=== PATIENT | male | born 1945 | race African-American/Black ===

== ENCOUNTER 2016-08-18 09:28 | Inpatient (IN) | payer MEDICARE, OTHER ==
--- NOTE | ~2016-08-18 | DS ---
Discharge Summary [facility] [address] [place]. [address] NAME: SHAY BAPTISTE : 43 STATUS : DIS IN PAT#: [id number] AGE: 71 ADM/REG DATE : 08/18/16 MR#: [id number] REPORT SERV DATE: 09/07/16 DICTATED BY: JUDIE GIBBONS DATE: 09/07/16 REPORT STATUS : Draft TRANSCRIBED BY: MODL DATE: 09/07/16 Data Collection from hospitalization DISCHARGE DIAGNOSIS(ES): 1. Chronic respiratory failure - status post trach/pneumonia. 2. Shock/hypotension. 3. Sepsis - multifactorial/wounds. 4. Atrial fibrillation with rapid ventricular response - sinus rhythm. 5. Encephalopathy/altered mental status. 6. History of seizures. 7. Dysphagia with percutaneous endoscopic gastrostomy tube/tube feedings. 8. Diabetes mellitus. 9. Chronic kidney disease. 10.Anemia. 11.History of closed head injury. 12.History of systolic congestive heart failure. 13.Chronic obstructive pulmonary disease. 14.Chronic debilitation. 15.History of adrenal adenoma. 16.History of urolithiasis. 17.Degenerative disk disease. 18.Depression. 19.Former smoker. CONSULTATIONS: Chencho Dunn MD; Pierce Hernandez M.D.; Bennett Raymundo M.D. PROCEDURES PERFORMED: CT scan of the brain without contrast, 08/18/2016. MEDICATIONS: CONDITION AT DISCHARGE: DISPOSITION: [facility]. HOSPITAL COURSE: This is a 71-year-old man who is well known to our service. He was transferred from [facility] to [facility] Emergency Room with the chief complaint of abnormal labs and an altered mental status. The patient was recently discharged from the hospital on the 04 of August. He was sent back to the facility where he was found not to be himself. He was sent to the emergency room and workup there revealed multiple electrolyte abnormalities as well as questionable urinary infection. He was admitted to the hospital at this time for further evaluation and treatment. Upon admission, white blood cell count was 18. Troponin was negative. IV fluids were started for gentle hydration. He was felt to be at risk for sepsis. The patient is chronically hypotensive. We would evaluate his thyroid medication and adjust accordingly due to his elevated TSH. Ventilator support continued. DVT precautions were in place. We elevated the head of his bed. A PICC line was inserted. The following day, he was evaluated by Physical Therapy. IV fluids were adjusted. His sodium level had decreased to Discharge Summary [facility] [address] [place]. [address] NAME: SHAY BAPTISTE : 43 STATUS : DIS IN PAT#: [id number] AGE: 71 ADM/REG DATE : 08/18/16 MR#: [id number] REPORT SERV DATE: 09/07/16 DICTATED BY: JUDIE GIBBONS DATE: 09/07/16 REPORT STATUS : Draft TRANSCRIBED BY: MODL DATE: 09/07/16 159. Repeat urinalysis is positive. CT scan of the brain without contrast showed no acute intracranial abnormality. He was seen in consultation by Dr. Pierce Batista. White count was 15.3. There was concern that his renal disease was much worse than stage II chronic kidney disease. He was clearly not felt to be a dialysis candidate. The patient's sister was not present who was the decision maker. We continued to adjust his IV fluids. Echocardiogram was performed. The patient was also seen by Dr. Bennett Raymundo. He was well known to Dr. Raymundo from previous admissions. The patient was found to have ESBL E. coli in the urine. 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 Vancomycin had been added to his regimen. Blood cultures were negative to date. The source of his sepsis picture was not entirely clear. He had been receiving Zosyn and now had the addition of vancomycin. On the , his sodium level decreased to 143. IV fluids were adjusted. He remained at full code at this time. His prognosis remained poor. His white count was 16.9. T-max was 101.3. Chest x-ray was unchanged. A sputum culture was pending. Tobramycin was going to be added. Vancomycin and Zosyn were continued. On 08/23/2016, sodium level was now 140. White blood cell count had decreased to 14.7. Influenza scan was negative. The following day, he was not remained sedated. The patient's sister was told in detail about the patient's poor prognosis and declining condition. She was going to consider comfort measures and make a decision. White count was 12.5. Contact isolation was in place. Hospice care had been recommended. Vancomycin was stopped. On the , the patient was seen by Dr. Chencho Dunn regarding chronic respiratory failure with hypoxia and hypercapnia. The patient has underlying chronic infections with multidrug resistant organisms. The patient has chronic hypercapnic and hypoxic respiratory failure. He was noted to be acidotic at this moment in time and ventilator strategy had been changed. We were going to attempt to obtain a repeat arterial blood gas to ensure adequate CO2 removal. Echocardiogram showed ejection fraction 55-60%. He had bilateral rhonchi and coarse breath sounds. Plans were being made for probable terminal wean. On the , he was only minimally responsive. He did not appear to be in distress. His condition continued to decline. In the religious education teacher hours of 08/29/2016, he was found without blood pressure, pulse, or respirations. He was pronounced at 0736 hours and released to the above mentioned home. Information collected by: Michelle Bowman I submit the above information as my discharge summary. TG/MODL Judie Gibbons M.D. / [id number] CC: Rusty Chapman M.D. Robert Warren Goldmann, M.D.
--- NOTE | ~2016-08-18 | CN ---
Consultation Report [facility] [address] [place]. [address] NAME: SHAY BAPTISTE : 43 STATUS : ADM IN [facility]#: [id number] AGE: 71 ADM/REG DATE : 08/18/16 MR#: [id number] REPORT SERV DATE: 08/25/16 DICTATED BY: CHENCHO DUNN DATE: 08/25/16 REPORT STATUS : Draft TRANSCRIBED BY: MODL DATE: 08/25/16 CRITICAL CARE CONSULT NOTE DATE OF CONSULTATION: REQUESTING PHYSICIAN: Ridge Barnett M.D. REASON FOR CONSULTATION: Chronic respiratory failure with hypoxia and hypercapnia. CHIEF COMPLAINT: Unable to obtain due to the patient's current medical status. HISTORY OF PRESENT ILLNESS: Mr. Baptiste is a 71-year-old gentleman with a past medical history of chronic respiratory failure who is well-known to the [facility] Service, Dr. Barnett and Dr. Brown. He was admitted one week ago with altered mental status and had a diagnosis at that time of dehydration. History was obtained from the nursing staff as there was no current family at the bedside at 2 o'clock in the morning when the patient was seen. The patient is now found to have underlying chronic infections with multi-drug resistant organisms. PAST MEDICAL HISTORY: History of a closed head injury in 2003, history of seizures, chronic respiratory failure on mechanical ventilation, dysphagia with a PEG, COPD, chronic kidney disease, sacral decubitus ulcer, chronic Walker, diabetes, depression, iron deficiency anemia. CURRENT MEDICATIONS: Medication list reviewed, the patient's current antimicrobial medications include tobramycin, Zosyn. Pulmonary medications include Dulera, DuoNeb, and albuterol. ALLERGIES: NO KNOWN DRUG ALLERGIES. FAMILY HISTORY: Coronary artery disease per record. SOCIAL HISTORY: The patient currently is at [facility], his immediate family is a sister. REVIEW OF SYSTEMS: Unable to obtain as the patient is noncommunicative. PHYSICAL EXAMINATION: VITAL SIGNS: The patient's currently temperature maximum of 99.3, heart rate between 100 and 120, respiratory rate between 17 and 33 on mechanical ventilation. Blood pressure between 61 systolic and 124 with a MAP greater than 65 for at least the last six hours. GENERAL: The patient is looking around in the room, he does not respond to verbal stimuli but does respond to touch as he grimaces. Consultation Report [facility] [address] [place]. [address] NAME: SHAY BAPTISTE : 43 STATUS : ADM IN PAT#: [id number] AGE: 71 ADM/REG DATE : 08/18/16 MR#: [id number] REPORT SERV DATE: 08/25/16 DICTATED BY: CHENCHO DUNN DATE: 08/25/16 REPORT STATUS : Draft TRANSCRIBED BY: MODL DATE: 08/25/16 HEENT: No JVD is noted. PULMONARY: Lungs are clear to auscultation in the anterior stephenson. CARDIAC: Tachycardic, slight systolic murmur. ABDOMEN: Abdomen is soft, the patient does grimace to touch. No guarding. Positive bowel sounds. EXTREMITIES: No lower extremity edema, extremity is lukewarm, peripheral pulses noted in all extremity, the patient is moving all extremities. LABORATORY DATA: Hemoglobin 9.1 up from 6.6, kidney function is not adequate. Arterial blood gas showed a pH of 7.26, pCO2 of 84, this was done 24 hours ago. At that time, the patient had a tidal volume of 500 and a rate of 16. Current tidal volume is 550 with a rate of 18. ASSESSMENT AND PLAN: Mr. Baptiste is a 71-year-old gentleman with a past medical history noted above, who currently has Acinetobacter which is a carbapenemase and Infectious Disease is currently on board, chest x-ray yesterday showed no new infiltrate. Recommendations included below: 1. Chronic hypercapnic and hypoxic respiratory failure: The patient was noted to be acidotic, at this moment in time ventilator strategy has been changed, we will attempt to obtain a repeat arterial blood gas to ensure adequate CO2 removal. 2. Goals of care: Upon review of the record, Palliative Care has been consulted for further discussion in this patient and his overall goals of care in light of his new drug-resistant organism. Thank you very much for this consultation and allowing us to participate in your patient's care, please call us with any further questions or concerns. HFQ/CARYL Chencho Dunn MD / [id number] CC: Ridge Barnett M.D.
--- NOTE | ~2016-08-18 | HP ---
History And Physical [facility] [id number] [place]. [address] NAME: SHAY BAPTISTE : 43 STATUS : ADM IN [facility]#: [id number] AGE: 71 ADM/REG DATE : 08/18/16 MR#: [id number] REPORT SERV DATE: 08/18/16 DICTATED BY: RIDGE GIBBONS DATE: 08/18/16 REPORT STATUS : Draft TRANSCRIBED BY: MODL DATE: 08/18/16 DATE OF ADMISSION: 08/18/2016 CHIEF COMPLAINT: Abnormal labs and altered mental status. HISTORY OF PRESENT ILLNESS: A 71-year-old black male well known to our service. Transferred from [facility] to [facility] emergency room with the above complaint. Due to the patient's decreased mental status, full history and physical exam difficult to obtain. Chart and staff were reviewed. The patient was recently discharged from the hospital on the 04 of August. Please see admission and discharge notes. He was sent back to the facility where he was noted to not be himself. He was sent to the emergency room where workup there revealed multiple electrolyte abnormalities as well as questionable urinary tract infection, and therefore, he was admitted for correction of his electrolytes, IV fluids, and workup of questionable infection. The patient is chronically debilitated with decreased mental status, therefore rest of the history will be obtained by the chart. ALLERGIES: NO KNOWN DRUG ALLERGIES. MEDICATIONS: Please see MAR. PAST MEDICAL HISTORY: Recent hospitalization with diarrhea and hypotension-please see old notes, history of seizures, closed head injury in 2003, systolic congestive heart failure, COPD, history of pneumonia, history of chronic respiratory failure on ventilator, dysphagia with PEG, osteoarthritis, chronic kidney disease stage II at baseline, chronic debilitation, prostate problems, history of adrenal adenoma, chronic Walker, urolithiasis, chronic pressure ulcers, IDDM type 2, iron deficiency anemia, degenerative disc disease, and depression. PAST SURGICAL HISTORY: Tracheostomy, pneumothorax with chest tube, PEG tube placement, heart catheterization, history of urethral stents and cystourethroscopy. SOCIAL HISTORY: The patient lives at [facility], has a sister who helps with his care, Caodaism restorationism, former smoker, single. FAMILY HISTORY: Coronary artery disease. REVIEW OF SYSTEMS: Unable to obtain due to the patient's decreased mental status. PHYSICAL EXAMINATION: VITAL SIGNS: Blood pressure is running at baseline 90s to 100/60, pulse 100, respirations 16 with chronic vent, and temperature 98.8. History And Physical [address] [address] NAME: SHAY BAPTISTE : 43 STATUS : ADM IN PAT#: [id number] AGE: 71 ADM/REG DATE : 08/18/16 MR#: [id number] REPORT SERV DATE: 08/18/16 DICTATED BY: RIDGE GIBBONS DATE: 08/18/16 REPORT STATUS : Draft TRANSCRIBED BY: CARYL DATE: 08/18/16 GENERAL: A black male well known to me with his chronic debilitative state. HEENT: Head, no acute injuries. Eyes, muddy sclerae but otherwise anicteric. ENT, edentulous. Otherwise dry mucosa. NECK: Cachectic with trach. LUNGS: Bilateral upper respiratory congestion. HEART: Please see heart monitor but tachycardic at this time. ABDOMEN: PEG tube placement, soft, positive bowel sounds. : Chronic Walker is present. EXTREMITIES: Wasting is present. LYMPH: No edema. SKIN: Chronic pressure ulcers-please see wound care-his right hip and sacral pressure ulcer at stage IV. NEUROLOGIC: No cooperation with exam. LABORATORY DATA: 1. CBC shows WBC 18, H and H 8.1 and 28.2, and PLT is 316. INR 1.3. Chemistry shows Na 165, K 4.5, CO 121, CO2 of 41, BUN 143, creatinine 1.14, GFR 74. Glucose 112. Lactate is 1.1 (N). Magnesium is 3.3 (H). Beta natriuretic peptide is 397 (H). Troponin is negative at this time. TSH is 6.4 (H). Depakote level 2.3 (L). 2. Blood gas shows pH 7.43, pCO2 of 69, PO2 of 59, bicarb 44, and O2 saturation 89% on CMV ventilator. Urinalysis from chronic Walker unfortunately is cloudy with everything being positive. Question to validity of this urine. 3. Imaging-CT of the brain shows no changes, otherwise nothing acute. Chest x-ray shows remote changes with bilateral basilar atelectasis. 4. Consultation-we will consult Critical Care for vent management. IMPRESSION: 1. Hyponatremia. 2. Uremia. 3. Leukocytosis-questionable cause. 4. Bacteriuria with chronic Walker. 5. Hypermagnesemia. 6. Anemia of chronic disease. 7. Hypotension-chronic. 8. Elevated TSH. 9. Chronic respiratory failure with vent dependent trach. 10.Chronic systolic congestive heart failure. 11.IDDM type 2. 12.History of seizure disorders. 13.Sacral pressure ulcer stage 4. 14.Dysphagia with PEG. 15.History of closed head injury with chronic debilitation. 16.History of chronic kidney disease, stage II. PLAN: 1. We will start IV fluids and hydrate gently. The patient is at risk for SOFTWARE DEVELOPER complications. 2. We will watch renal function as it is probably secondary to his low volumes. We will consult renal as necessary. The patient is at risk for acute kidney injury. History And Physical [address] [place]. [address] NAME: SHAY BAPTISTE : 43 STATUS : ADM IN [facility]#: [id number] AGE: 71 ADM/REG DATE : 08/18/16 MR#: [id number] REPORT SERV DATE: 08/18/16 DICTATED BY: RIDGE GIBBONS DATE: 08/18/16 REPORT STATUS : Draft TRANSCRIBED BY: CARYL DATE: 08/18/16 3. Follow leukocytosis as he is at risk for sepsis. 4. Question urine at this time. May change Walker and repeat urine to make sure good sample is achieved for being obligated to antibiotics. 5. We will follow magnesium with fluids as I suspect it will come back down to baseline normal. 6. Follow anemia as the patient is at risk for acute coronary syndrome. 7. He is chronically hypotensive but we will watch pressures as he is at risk for sepsis and multisystem organ failure. 8. We will evaluate thyroid medicines and adjust accordingly due to his elevated TSH. 9. Support ventilator in unit and consult Critical Care for their assistance. The patient is at risk for ARDS. 10.Control blood sugars as he is at risk for DKA. 11.Continue seizure medications as he is at risk for status epilepticus. 12.Consult Wound Care for evaluation of his wounds as he is at risk for osteomyelitis. 13.Elevate head of bed as he is at risk for aspiration. 14.Consult PT for eval and treatment. 15.DVT precautions. RH/MODL Ridge Gibbons M.D. / [id number] CC: Ridge Gibbons M.D.
[~2016-08-18 09:28] MED LIST: ACIDOPHILU2 PEG; AMB5 PEG; ATV.5 PEG; BEN25 PEG; BISR PR; CENTRUM PEG; CHLORASEPTIC1.4 % MT; CILOXAN OPH; COLACEUDL PEG; COUMADIN7.5 MG PEG; DEP250 PEG; DEPAKUDL PEG; DULERA 200 MCG/13 GM INH; DUONEB INH; EFFEX75 PEG; ELIQUIS 2.5 MG2.5 MG PO; FEOSOLEL PEG; FLOMAX4 PEG; GERI-MOX PEG; GGEXPSF PEG; GLUCAGEN SC; GLUCAGON IV/IM/SC; GUAIFENESI4 PEG; HEPA50006 SC; HUMALOG SC; IMOD PEG; LEVAQUIN750 MG PEG; LEVOTHYROXIN25 MCG PEG; LEXAPRO5 MG PEG; LOP25 PO; MEDROL4 IV; MIRALAXPKT PEG; MOMUD PEG; MULTIPLE VIT PEG; NORCO1 TA1 PO; OMNICEF300 PEG; P10 PEG; P20 PEG; PEPCID40 MG PEG; PERIDEX MT; PERIOGARD0.12 % PO; PREV30 PEG; PRIN2.5 PEG; PRIN5 PEG; PROBIOTIC PEG; PROTONI1 PEG; PROTONI1 PO; PROVENTSOL INH; QUESTRAN4 GM PEG; T PEG; THERA MULTI1 ML PO; VANCO500 IV; X5 PO; XODOL1 TA2 PEG; ZITHROMAX500 MG PEG; ZOFRAN4 PEG; ZOSYN375 IV
[2016-08-18 09:29] LABS: ALLENS TEST Pos; BE (BASE EXCESS) 17.5 MEQ/L (0 +/- 2.5); CARBOXYHEMOGLOBIN 1.3 % (0-3); HCO3 (ACTUAL BICARBONATE) 44.2 MEQ/L (23-27); HEMOBLOGIN CONTENT 8.7 G/DL (14-18); INSTRUMENT SERIAL # 8087; METHEMOGLOBIN 0.4 % (0-3); MODE CMV; O2 CONTENT 10.8 VOL% (18-24); PCO2 (CO2 TENSION) 69 MMHG (35-45); PO2 (O2 TENSION) 59 MMHG (79-93); SAMPLE Arterial; TIDAL VOLUME 500 ML; pH 7.43 (7.37-7.43)
[2016-08-18 09:41] LABS: BASOPHILS 0.2 %; BASOPHILS ABSOLUTE 0.03 10/3/uL (0.0-0.16); EOSINOPHILS 5.3 %; EOSINOPHILS ABSOLUTE 1.01 10/3/uL (0.0-0.53); HEMATOCRIT 28.2 % (40.0-51.0); HEMOGLOBIN 8.1 g/dL (13.6-17.8); IMMATURE GRANULOCYTES 0.6 %; IMMATURE GRANULOCYTES ABSOLUTE 0.12 10/3/uL (0.0-0.11); LYMPHOCYTES 10.7 %; LYMPHOCYTES ABSOLUTE 2.03 10/3/uL (0.67-4.30); MEAN CORPUS HGB CONC 28.7 g/dL (32.0-36.0); MEAN PLATELET VOLUME 10.6 fL (9.2-13.0); MONOCYTES 6.2 %; MONOCYTES ABSOLUTE 1.17 10/3/uL (0.21-1.20); NEUTROPHILS ABSOLUTE 14.55 10/3/uL (2.02-8.40); NUCLEATED RED BLOOD CELLS 0.2 /100WBC (0-0); PLATELET COUNT 316 10/3/uL (150-400); RBC DISTRIBUTION WIDTH 21.7 % (12.0-16.0); RED CELL COUNT 3.12 10/6/uL (4.7-6.1)
[2016-08-18 09:43] LABS: ER CBC TAT 0 Hrs 13 Mins; MEAN CORPUSCULAR VOLUME 90.4 fL (80-100); WHITE BLOOD CELLS 18.9 10/3/uL (4.5-10.5)
[2016-08-18 09:44] LABS: MANUAL DIFF NO %
[2016-08-18 09:48] LABS: INTERNATIONAL NORMAL RATI 1.3 UNITS (-); PARTIAL THROMBO TIME 25.2 SEC (22.5-37.2); PROTIME (NOT ORD) 16.1 SEC (12.0-14.5)
[2016-08-18 09:56] LABS: CHEST PAIN PROFILE TAT 0 Hrs 26 Mins; POTASSIUM, SERUM 4.5 MMOL/L (3.5-5.3); TROPONIN I 0.04 NG/ML (<0.05)
[2016-08-18 09:57] LABS: LACTATE 1.1 MMOL/L (0.3-2.4)
[2016-08-18 09:59] LABS: BUN (BLOOD UREA NITROGEN) 143 MG/DL (6-23); CALCIUM, SERUM 11.7 MG/DL (8.5-10.4); CHLORIDE, SERUM 121 MMOL/L (96-112); CO2 (CARBON DIOXIDE) 41 MMOL/L (24-34); CREATININE 1.14 MG/DL (0.70-1.30); GFR AFRICAN AMERICAN 74 ML/MIN (>=60); GFR NON AFRICAN AMERICAN 64 ML/MIN (>=60); GLUCOSE, SERUM 112 MG/DL (60-99); SODIUM, SERUM 165 MMOL/L (135-148)
[2016-08-18 10:02] LABS: ULTRASENSITIVE TSH 6.42 MCIU/ML (0.358-3.740)
[2016-08-18 10:03] LABS: DEPAKENE (VALPROIC ACID) 23.7 MCG/ML (50.0-100.0)
[2016-08-18 10:06] LABS: ASCORBIC ACID (UR NOT ORDER) 40 (NEG); BILIRUBIN, URINE NEGATIVE (NEG); ER URINALYSIS TAT 0 Hrs 20 Mins; KETONE, URINE NEGATIVE (NEG); LEUKOCYTE ESTERASE(NOT OR LARGE (NEG); WBC (NOT ORDERED) (RFLEX) 74 (0-5)
[2016-08-18 10:12] LABS: NITRITE (URINE) POS (NEG)
[2016-08-18 10:32] LABS: ANISOCYTOSIS 1+ (5-10/OIF) (0-5/OIF); HYPOCHROMIA 1+ (3-10/OIF) (0-2/OIF); MICROCYTES 1+ (5-10/OIF) (0-5/OIF)
[2016-08-18] MEDS ORDERED: ADVAIR230P INH (10:42)
[2016-08-18 15:57] LABS: ASCORBIC ACID (UR NOT ORDER) 40 (NEG); BILIRUBIN, URINE NEGATIVE (NEG); KETONE, URINE NEGATIVE (NEG); LEUKOCYTE ESTERASE(NOT OR LARGE (NEG); WBC (NOT ORDERED) (RFLEX) > 182 (0-5)
[2016-08-18 18:12] LABS: BASOPHILS 0.3 %; BASOPHILS ABSOLUTE 0.05 10/3/uL (0.0-0.16); CHLORIDE, SERUM 121 MMOL/L (96-112); CO2 (CARBON DIOXIDE) 38 MMOL/L (24-34); CREATININE 1.03 MG/DL (0.70-1.30); EOSINOPHILS 3.8 %; EOSINOPHILS ABSOLUTE 0.57 10/3/uL (0.0-0.53); GFR AFRICAN AMERICAN 84 ML/MIN (>=60); GFR NON AFRICAN AMERICAN 72 ML/MIN (>=60); GLUCOSE, SERUM 92 MG/DL (60-99); HEMATOCRIT 26.5 % (40.0-51.0); HEMOGLOBIN 7.6 g/dL (13.6-17.8); IMMATURE GRANULOCYTES 0.4 %; IMMATURE GRANULOCYTES ABSOLUTE 0.06 10/3/uL (0.0-0.11); LYMPHOCYTES ABSOLUTE 1.35 10/3/uL (0.67-4.30); MEAN CORPUS HGB CONC 28.7 g/dL (32.0-36.0); MEAN CORPUSCULAR HEMOGLOB 26.1 pg (26.0-34.0); MEAN CORPUSCULAR VOLUME 91.1 fL (80-100); MEAN PLATELET VOLUME 9.9 fL (9.2-13.0); MONOCYTES 5.5 %; MONOCYTES ABSOLUTE 0.83 10/3/uL (0.21-1.20); NEUTROPHILS ABSOLUTE 12.14 10/3/uL (2.02-8.40); NUCLEATED RED BLOOD CELLS 0.5 /100WBC (0-0); PLATELET COUNT 329 10/3/uL (150-400); RED CELL COUNT 2.91 10/6/uL (4.7-6.1)
[2016-08-18 18:13] LABS: BUN (BLOOD UREA NITROGEN) 124 MG/DL (6-23); CALCIUM, SERUM 10.4 MG/DL (8.5-10.4); MANUAL DIFF NO %; SODIUM, SERUM 161 MMOL/L (135-148)
[2016-08-18 18:14] LABS: POTASSIUM, SERUM 4.4 MMOL/L (3.5-5.3)
[2016-08-18 18:43] LABS: SCHISTOCYTES OCC (0-2/OIF); TARGET CELLS OCC (1-2/OIF) (0-1/OIF)
[2016-08-19 04:57] LABS: BASOPHILS 0.3 %; BASOPHILS ABSOLUTE 0.04 10/3/uL (0.0-0.16); EOSINOPHILS 5.6 %; EOSINOPHILS ABSOLUTE 0.85 10/3/uL (0.0-0.53); IMMATURE GRANULOCYTES 0.3 %; IMMATURE GRANULOCYTES ABSOLUTE 0.05 10/3/uL (0.0-0.11); LYMPHOCYTES 9.1 %; LYMPHOCYTES ABSOLUTE 1.39 10/3/uL (0.67-4.30); MEAN CORPUS HGB CONC 28.6 g/dL (32.0-36.0); MEAN CORPUSCULAR HEMOGLOB 25.3 pg (26.0-34.0); MEAN CORPUSCULAR VOLUME 88.5 fL (80-100); MONOCYTES 5.3 %; MONOCYTES ABSOLUTE 0.81 10/3/uL (0.21-1.20); NEUTROPHILS 79.4 %; NEUTROPHILS ABSOLUTE 12.12 10/3/uL (2.02-8.40); NUCLEATED RED BLOOD CELLS 0.6 /100WBC (0-0); PLATELET COUNT 341 10/3/uL (150-400); RBC DISTRIBUTION WIDTH 21.9 % (12.0-16.0); RED CELL COUNT 2.61 10/6/uL (4.7-6.1); WHITE BLOOD CELLS 15.3 10/3/uL (4.5-10.5)
[2016-08-19 05:01] LABS: HEMOGLOBIN 6.6 g/dL (13.6-17.8)
[2016-08-19 05:02] LABS: HEMATOCRIT 23.1 % (40.0-51.0); MANUAL DIFF NO %
[2016-08-19 05:09] LABS: CALCIUM, SERUM 10.6 MG/DL (8.5-10.4); CHLORIDE, SERUM 119 MMOL/L (96-112); CO2 (CARBON DIOXIDE) 36 MMOL/L (24-34); CREATININE 0.96 MG/DL (0.70-1.30); GFR AFRICAN AMERICAN 91 ML/MIN (>=60); GFR NON AFRICAN AMERICAN 79 ML/MIN (>=60)
[2016-08-19 05:12] LABS: BUN (BLOOD UREA NITROGEN) 118 MG/DL (6-23); GLUCOSE, SERUM 62 MG/DL (60-99); PHOSPHORUS, SERUM 3.4 MG/DL (2.5-4.5); POTASSIUM, SERUM 4.4 MMOL/L (3.5-5.3); SODIUM, SERUM 159 MMOL/L (135-148); TROPONIN I 0.07 NG/ML (<0.05)
[2016-08-19 12:02] LABS: A/G RATIO 0.2 (0.7-1.9); ALBUMIN 1.5 G/DL (3.5-5.0); ALKALINE PHOSPHATASE 79 U/L (45-117); GLOBULIN 7.5 G/DL (2.5-4.1); SGPT(ALT) 13 U/L (5-65); TOTAL BILIRUBIN 0.3 MG/DL (0-1.2)
[2016-08-19 12:03] LABS: SGOT(AST) 48 U/L (5-40)
[2016-08-19 13:49] LABS: HEMATOCRIT 28.1 % (40.0-51.0); HEMOGLOBIN 8.3 g/dL (13.6-17.8)
[2016-08-20 04:38] LABS: CALCIUM, SERUM 9.9 MG/DL (8.5-10.4); CHLORIDE, SERUM 118 MMOL/L (96-112); CO2 (CARBON DIOXIDE) 36 MMOL/L (24-34); CREATININE 0.89 MG/DL (0.70-1.30); GFR AFRICAN AMERICAN 99 ML/MIN (>=60); GFR NON AFRICAN AMERICAN 85 ML/MIN (>=60); POTASSIUM, SERUM 4.3 MMOL/L (3.5-5.3)
[2016-08-20 04:40] LABS: BUN (BLOOD UREA NITROGEN) 92 MG/DL (6-23); GLUCOSE, SERUM 137 MG/DL (60-99); SODIUM, SERUM 158 MMOL/L (135-148)
[2016-08-20 05:20] LABS: BASOPHILS 0.1 %; BASOPHILS ABSOLUTE 0.02 10/3/uL (0.0-0.16); EOSINOPHILS 8.9 %; EOSINOPHILS ABSOLUTE 1.34 10/3/uL (0.0-0.53); HEMATOCRIT 26.5 % (40.0-51.0); HEMOGLOBIN 7.7 g/dL (13.6-17.8); IMMATURE GRANULOCYTES 0.3 %; IMMATURE GRANULOCYTES ABSOLUTE 0.05 10/3/uL (0.0-0.11); LYMPHOCYTES 9.5 %; LYMPHOCYTES ABSOLUTE 1.42 10/3/uL (0.67-4.30); MEAN CORPUS HGB CONC 29.1 g/dL (32.0-36.0); MEAN CORPUSCULAR HEMOGLOB 26.4 pg (26.0-34.0); MEAN CORPUSCULAR VOLUME 90.8 fL (80-100); MEAN PLATELET VOLUME 10.3 fL (9.2-13.0); MONOCYTES 8.1 %; MONOCYTES ABSOLUTE 1.22 10/3/uL (0.21-1.20); NEUTROPHILS 73.1 %; NEUTROPHILS ABSOLUTE 10.94 10/3/uL (2.02-8.40); NUCLEATED RED BLOOD CELLS 1.2 /100WBC (0-0); PLATELET COUNT 321 10/3/uL (150-400); RBC DISTRIBUTION WIDTH 20.6 % (12.0-16.0); RED CELL COUNT 2.92 10/6/uL (4.7-6.1)
[2016-08-20 05:30] LABS: MANUAL DIFF NO %
[2016-08-20 06:08] LABS: ANISOCYTOSIS 1+ (5-10/OIF) (0-5/OIF); PLATELET ESTIMATE ADQ (ADEQUATE); SPHEROCYTES FEW (3-10/OIF)
[2016-08-20 06:09] LABS: GIANT PLATELET OCC
[2016-08-21 04:34] LABS: CALCIUM, SERUM 9.5 MG/DL (8.5-10.4); CHLORIDE, SERUM 115 MMOL/L (96-112); CO2 (CARBON DIOXIDE) 35 MMOL/L (24-34); CREATININE 0.99 MG/DL (0.70-1.30); GFR AFRICAN AMERICAN 88 ML/MIN (>=60); GFR NON AFRICAN AMERICAN 76 ML/MIN (>=60); GLUCOSE, SERUM 163 MG/DL (60-99); SODIUM, SERUM 152 MMOL/L (135-148)
[2016-08-21 04:36] LABS: BUN (BLOOD UREA NITROGEN) 69 MG/DL (6-23); POTASSIUM, SERUM 4.8 MMOL/L (3.5-5.3)
[2016-08-21 08:35] LABS: BASOPHILS 0.1 %; BASOPHILS ABSOLUTE 0.02 10/3/uL (0.0-0.16); EOSINOPHILS 6.9 %; EOSINOPHILS ABSOLUTE 1.06 10/3/uL (0.0-0.53); HEMATOCRIT 25.9 % (40.0-51.0); HEMOGLOBIN 7.3 g/dL (13.6-17.8); IMMATURE GRANULOCYTES 0.5 %; IMMATURE GRANULOCYTES ABSOLUTE 0.07 10/3/uL (0.0-0.11); LYMPHOCYTES 9.2 %; MEAN CORPUS HGB CONC 28.2 g/dL (32.0-36.0); MEAN CORPUSCULAR HEMOGLOB 25.5 pg (26.0-34.0); MEAN CORPUSCULAR VOLUME 90.6 fL (80-100); MEAN PLATELET VOLUME 10.6 fL (9.2-13.0); MONOCYTES 10.6 %; MONOCYTES ABSOLUTE 1.62 10/3/uL (0.21-1.20); NEUTROPHILS 72.7 %; NEUTROPHILS ABSOLUTE 11.09 10/3/uL (2.02-8.40); NUCLEATED RED BLOOD CELLS 1.2 /100WBC (0-0); PLATELET COUNT 285 10/3/uL (150-400); RBC DISTRIBUTION WIDTH 20.8 % (12.0-16.0); RED CELL COUNT 2.86 10/6/uL (4.7-6.1); WHITE BLOOD CELLS 15.3 10/3/uL (4.5-10.5)
[2016-08-21 08:37] LABS: MANUAL DIFF NO %
[2016-08-22 07:31] LABS: BASOPHILS 0.1 %; BASOPHILS ABSOLUTE 0.02 10/3/uL (0.0-0.16); EOSINOPHILS 4.4 %; EOSINOPHILS ABSOLUTE 0.75 10/3/uL (0.0-0.53); HEMATOCRIT 25.6 % (40.0-51.0); HEMOGLOBIN 7.3 g/dL (13.6-17.8); IMMATURE GRANULOCYTES 0.7 %; IMMATURE GRANULOCYTES ABSOLUTE 0.11 10/3/uL (0.0-0.11); LYMPHOCYTES 10.6 %; LYMPHOCYTES ABSOLUTE 1.79 10/3/uL (0.67-4.30); MEAN CORPUS HGB CONC 28.5 g/dL (32.0-36.0); MEAN CORPUSCULAR HEMOGLOB 26.1 pg (26.0-34.0); MEAN CORPUSCULAR VOLUME 91.4 fL (80-100); MEAN PLATELET VOLUME 9.9 fL (9.2-13.0); MONOCYTES 8.1 %; MONOCYTES ABSOLUTE 1.36 10/3/uL (0.21-1.20); NEUTROPHILS 76.1 %; NEUTROPHILS ABSOLUTE 12.83 10/3/uL (2.02-8.40); NUCLEATED RED BLOOD CELLS 1.3 /100WBC (0-0); PLATELET COUNT 251 10/3/uL (150-400); WHITE BLOOD CELLS 16.9 10/3/uL (4.5-10.5)
[2016-08-22 07:32] LABS: MANUAL DIFF NO %
[2016-08-22 07:33] LABS: CALCIUM, SERUM 9.5 MG/DL (8.5-10.4); CO2 (CARBON DIOXIDE) 36 MMOL/L (24-34); CREATININE 0.73 MG/DL (0.70-1.30); GFR AFRICAN AMERICAN 107 ML/MIN (>=60); GFR NON AFRICAN AMERICAN 93 ML/MIN (>=60); GLUCOSE, SERUM 138 MG/DL (60-99); POTASSIUM, SERUM 4.1 MMOL/L (3.5-5.3)
[2016-08-22 07:34] LABS: BUN (BLOOD UREA NITROGEN) 48 MG/DL (6-23); CHLORIDE, SERUM 105 MMOL/L (96-112); SODIUM, SERUM 143 MMOL/L (135-148)
[2016-08-22 16:28] LABS: INFLUENZA A SCREEN NEGATIVE (NEGATIVE); INFLUENZA B SCREEN NEGATIVE (NEGATIVE)
[2016-08-23 05:59] LABS: BASOPHILS 0.1 %; BASOPHILS ABSOLUTE 0.01 10/3/uL (0.0-0.16); EOSINOPHILS 5.3 %; EOSINOPHILS ABSOLUTE 0.78 10/3/uL (0.0-0.53); HEMATOCRIT 22.6 % (40.0-51.0); HEMOGLOBIN 6.6 g/dL (13.6-17.8); IMMATURE GRANULOCYTES 0.4 %; IMMATURE GRANULOCYTES ABSOLUTE 0.06 10/3/uL (0.0-0.11); LYMPHOCYTES 10.3 %; LYMPHOCYTES ABSOLUTE 1.51 10/3/uL (0.67-4.30); MEAN CORPUS HGB CONC 29.2 g/dL (32.0-36.0); MEAN CORPUSCULAR HEMOGLOB 25.6 pg (26.0-34.0); MEAN CORPUSCULAR VOLUME 87.6 fL (80-100); MEAN PLATELET VOLUME 10.6 fL (9.2-13.0); MONOCYTES 8.2 %; MONOCYTES ABSOLUTE 1.21 10/3/uL (0.21-1.20); NEUTROPHILS 75.7 %; NUCLEATED RED BLOOD CELLS 1.2 /100WBC (0-0); PLATELET COUNT 277 10/3/uL (150-400); RBC DISTRIBUTION WIDTH 21.3 % (12.0-16.0); RED CELL COUNT 2.58 10/6/uL (4.7-6.1); WHITE BLOOD CELLS 14.7 10/3/uL (4.5-10.5)
[2016-08-23 06:00] LABS: MANUAL DIFF NO %
[2016-08-23 06:01] LABS: CALCIUM, SERUM 9.3 MG/DL (8.5-10.4); CHLORIDE, SERUM 100 MMOL/L (96-112); CO2 (CARBON DIOXIDE) 34 MMOL/L (24-34); CREATININE 0.75 MG/DL (0.70-1.30); GFR AFRICAN AMERICAN 106 ML/MIN (>=60); GFR NON AFRICAN AMERICAN 92 ML/MIN (>=60); GLUCOSE, SERUM 119 MG/DL (60-99); POTASSIUM, SERUM 4.4 MMOL/L (3.5-5.3); SODIUM, SERUM 140 MMOL/L (135-148); TROPONIN I 0.03 NG/ML (<0.05)
[2016-08-23 06:05] LABS: BUN (BLOOD UREA NITROGEN) 43 MG/DL (6-23)
[2016-08-23 07:46] LABS: PROCALCITONIN 0.94 ng/mL (<0.5)
[2016-08-24 01:08] LABS: BE (BASE EXCESS) 7.9 MEQ/L (0 +/- 2.5); CARBOXYHEMOGLOBIN 1.3 % (0-3); HCO3 (ACTUAL BICARBONATE) 36.7 MEQ/L (23-27); HEMOBLOGIN CONTENT 8.8 G/DL (14-18); INSTRUMENT SERIAL # 8083; METHEMOGLOBIN 0.4 % (0-3); MODE CMV; O2 CONTENT 11.5 VOL% (18-24); OPERATOR ID 17370; PCO2 (CO2 TENSION) 84 MMHG (35-45); PO2 (O2 TENSION) 71 MMHG (79-93); SAMPLE Arterial; pH 7.26 (7.37-7.43)
[2016-08-24 01:09] LABS: ALLENS TEST Pos; TIDAL VOLUME 500 ML
[2016-08-24 05:40] LABS: BASOPHILS 0.1 %; BASOPHILS ABSOLUTE 0.01 10/3/uL (0.0-0.16); EOSINOPHILS 2.6 %; EOSINOPHILS ABSOLUTE 0.33 10/3/uL (0.0-0.53); IMMATURE GRANULOCYTES 0.3 %; IMMATURE GRANULOCYTES ABSOLUTE 0.04 10/3/uL (0.0-0.11); LYMPHOCYTES 6.6 %; LYMPHOCYTES ABSOLUTE 0.83 10/3/uL (0.67-4.30); MEAN CORPUSCULAR HEMOGLOB 26.9 pg (26.0-34.0); MEAN CORPUSCULAR VOLUME 86.7 fL (80-100); MEAN PLATELET VOLUME 10.2 fL (9.2-13.0); MONOCYTES 4.9 %; MONOCYTES ABSOLUTE 0.61 10/3/uL (0.21-1.20); NEUTROPHILS 85.5 %; NUCLEATED RED BLOOD CELLS 1.2 /100WBC (0-0); PLATELET COUNT 280 10/3/uL (150-400); RBC DISTRIBUTION WIDTH 19.5 % (12.0-16.0); WHITE BLOOD CELLS 12.5 10/3/uL (4.5-10.5)
[2016-08-24 05:41] LABS: HEMATOCRIT 29.3 % (40.0-51.0); HEMOGLOBIN 9.1 g/dL (13.6-17.8); MANUAL DIFF NO %; MEAN CORPUS HGB CONC 31.1 g/dL (32.0-36.0); RED CELL COUNT 3.38 10/6/uL (4.7-6.1)
[2016-08-24 05:43] LABS: CALCIUM, SERUM 9.5 MG/DL (8.5-10.4); CHLORIDE, SERUM 101 MMOL/L (96-112); CO2 (CARBON DIOXIDE) 35 MMOL/L (24-34); CREATININE 0.64 MG/DL (0.70-1.30); GFR AFRICAN AMERICAN 113 ML/MIN (>=60); GFR NON AFRICAN AMERICAN 98 ML/MIN (>=60); POTASSIUM, SERUM 3.8 MMOL/L (3.5-5.3); SODIUM, SERUM 141 MMOL/L (135-148)
[2016-08-24 05:45] LABS: BUN (BLOOD UREA NITROGEN) 38 MG/DL (6-23); GLUCOSE, SERUM 149 MG/DL (60-99)
[2016-08-24 06:15] LABS: DEPAKENE (VALPROIC ACID) 26.9 MCG/ML (50.0-100.0)
[2016-08-25 04:20] LABS: BE (BASE EXCESS) 8.7 MEQ/L (0 +/- 2.5); CARBOXYHEMOGLOBIN 0.3 % (0-3); HCO3 (ACTUAL BICARBONATE) 35.6 MEQ/L (23-27); HEMOBLOGIN CONTENT 9.4 G/DL (14-18); INSTRUMENT SERIAL # 8083; METHEMOGLOBIN 0.1 % (0-3); O2 CONTENT 13.1 VOL% (18-24); PCO2 (CO2 TENSION) 63 MMHG (35-45); PO2 (O2 TENSION) 108 MMHG (79-93); pH 7.37 (7.37-7.43)
[2016-08-25 04:21] LABS: ALLENS TEST Pos; MODE CMV; OPERATOR ID 334499; SAMPLE Arterial; TIDAL VOLUME 550 ML
[2016-08-25 04:45] LABS: BASOPHILS 0.2 %; BASOPHILS ABSOLUTE 0.02 10/3/uL (0.0-0.16); EOSINOPHILS ABSOLUTE 0.39 10/3/uL (0.0-0.53); HEMATOCRIT 29.7 % (40.0-51.0); IMMATURE GRANULOCYTES 0.3 %; IMMATURE GRANULOCYTES ABSOLUTE 0.03 10/3/uL (0.0-0.11); LYMPHOCYTES 9.1 %; MEAN CORPUS HGB CONC 30.3 g/dL (32.0-36.0); MEAN CORPUSCULAR HEMOGLOB 26.4 pg (26.0-34.0); MEAN CORPUSCULAR VOLUME 87.1 fL (80-100); MEAN PLATELET VOLUME 10.2 fL (9.2-13.0); MONOCYTES 7.9 %; MONOCYTES ABSOLUTE 0.78 10/3/uL (0.21-1.20); NEUTROPHILS 78.5 %; NEUTROPHILS ABSOLUTE 7.73 10/3/uL (2.02-8.40); PLATELET COUNT 311 10/3/uL (150-400); RBC DISTRIBUTION WIDTH 19.9 % (12.0-16.0); RED CELL COUNT 3.41 10/6/uL (4.7-6.1); WHITE BLOOD CELLS 9.9 10/3/uL (4.5-10.5)
[2016-08-25 04:49] LABS: MANUAL DIFF NO %
[2016-08-25 04:52] LABS: BUN (BLOOD UREA NITROGEN) 41 MG/DL (6-23); CALCIUM, SERUM 9.2 MG/DL (8.5-10.4); CHLORIDE, SERUM 98 MMOL/L (96-112); CO2 (CARBON DIOXIDE) 36 MMOL/L (24-34); CREATININE 0.73 MG/DL (0.70-1.30); GFR AFRICAN AMERICAN 107 ML/MIN (>=60); GFR NON AFRICAN AMERICAN 93 ML/MIN (>=60); POTASSIUM, SERUM 3.9 MMOL/L (3.5-5.3); SODIUM, SERUM 141 MMOL/L (135-148)
[2016-08-25 04:56] LABS: GLUCOSE, SERUM 94 MG/DL (60-99)
[2016-08-26 04:28] LABS: A/G RATIO 0.2 (0.7-1.9); ALBUMIN 1.2 G/DL (3.5-5.0); BUN (BLOOD UREA NITROGEN) 30 MG/DL (6-23); CALCIUM, SERUM 9.6 MG/DL (8.5-10.4); CHLORIDE, SERUM 101 MMOL/L (96-112); CO2 (CARBON DIOXIDE) 36 MMOL/L (24-34); CREATININE 0.64 MG/DL (0.70-1.30); GFR AFRICAN AMERICAN 113 ML/MIN (>=60); GFR NON AFRICAN AMERICAN 98 ML/MIN (>=60); GLOBULIN 6.4 G/DL (2.5-4.1); GLUCOSE, SERUM 126 MG/DL (60-99); POTASSIUM, SERUM 4.1 MMOL/L (3.5-5.3); PREALBUMIN 6.5 MG/DL (17.0-43.0); SGOT(AST) 15 U/L (5-40); SGPT(ALT) 8 U/L (5-65); SODIUM, SERUM 144 MMOL/L (135-148); TOTAL BILIRUBIN 0.2 MG/DL (0-1.2); TOTAL PROTEIN 7.6 G/DL (6.0-8.5)
[2016-08-26 04:29] LABS: ALKALINE PHOSPHATASE 66 U/L (45-117); PHOSPHORUS, SERUM 2.3 MG/DL (2.5-4.5)
[2016-08-26 04:33] LABS: BASOPHILS 0.2 %; BASOPHILS ABSOLUTE 0.02 10/3/uL (0.0-0.16); EOSINOPHILS 3.4 %; EOSINOPHILS ABSOLUTE 0.32 10/3/uL (0.0-0.53); HEMATOCRIT 28.3 % (40.0-51.0); HEMOGLOBIN 8.9 g/dL (13.6-17.8); IMMATURE GRANULOCYTES 0.3 %; IMMATURE GRANULOCYTES ABSOLUTE 0.03 10/3/uL (0.0-0.11); LYMPHOCYTES 10.6 %; LYMPHOCYTES ABSOLUTE 1.01 10/3/uL (0.67-4.30); MEAN CORPUS HGB CONC 31.4 g/dL (32.0-36.0); MEAN CORPUSCULAR HEMOGLOB 26.9 pg (26.0-34.0); MEAN CORPUSCULAR VOLUME 85.5 fL (80-100); MEAN PLATELET VOLUME 10.3 fL (9.2-13.0); MONOCYTES 10.8 %; MONOCYTES ABSOLUTE 1.03 10/3/uL (0.21-1.20); NEUTROPHILS 74.7 %; NEUTROPHILS ABSOLUTE 7.12 10/3/uL (2.02-8.40); NUCLEATED RED BLOOD CELLS 1.4 /100WBC (0-0); PLATELET COUNT 343 10/3/uL (150-400); RBC DISTRIBUTION WIDTH 20.1 % (12.0-16.0); RED CELL COUNT 3.31 10/6/uL (4.7-6.1); WHITE BLOOD CELLS 9.5 10/3/uL (4.5-10.5)
[2016-08-26 04:37] LABS: MANUAL DIFF NO %
== END 2016-08-29 11:03 | disposition expired | DRG 698 ==
LOC: ER 09:28 → MIC 13:06
PROVIDERS: Emergency Medicine; Family Medicine; Internal Medicine Infectious Disease
PROC: 5A1955Z Respiratory Ventilation, Greater than 96 Consecutive Hours (ICD-10-PCS; principal; 2016-08-18)
PROC: 02HV33Z Insertion of Infusion Device into Superior Vena Cava, Percutaneous Approach (ICD-10-PCS; 2016-08-18)
PROC: 4A02X4A Measurement of Cardiac Electrical Activity, Guidance, External Approach (ICD-10-PCS; 2016-08-18)
PROC: 30233N1 Transfusion of Nonautologous Red Blood Cells into Peripheral Vein, Percutaneous Approach (ICD-10-PCS; 2016-08-24)
DX: T83.518A Infection and inflammatory reaction due to other urinary catheter, initial encounter (principal); L89.154 Pressure ulcer of sacral region, stage 4; R65.21 Severe sepsis with septic shock; E43 Unspecified severe protein-calorie malnutrition; A41.9 Sepsis, unspecified organism; G93.41 Metabolic encephalopathy; Z99.11 Dependence on respirator [ventilator] status; E87.2 Acidosis; J96.11 Chronic respiratory failure with hypoxia; E87.1 Hypo-osmolality and hyponatremia; J96.12 Chronic respiratory failure with hypercapnia; I50.22 Chronic systolic (congestive) heart failure; Z68.1 Body mass index [BMI] 19.9 or less, adult; E11.22 Type 2 diabetes mellitus with diabetic chronic kidney disease; E83.41 Hypermagnesemia; D63.8 Anemia in other chronic diseases classified elsewhere; N18.2 Chronic kidney disease, stage 2 (mild); G40.909 Epilepsy, unspecified, not intractable, without status epilepticus; Z87.01 Personal history of pneumonia (recurrent); Z93.0 Tracheostomy status; Z79.899 Other long term (current) drug therapy; Z79.4 Long term (current) use of insulin; Z87.891 Personal history of nicotine dependence; Z51.5 Encounter for palliative care; F32.9 Major depressive disorder, single episode, unspecified; F41.9 Anxiety disorder, unspecified; Z82.49 Family history of ischemic heart disease and other diseases of the circulatory system
CPT/HCPCS: 31720; 36415; 36569; 36600; 70450; 71010; 80048; 80053; 80164; 80200; 80202; 81001; 82272; 82533; 82805; 82962; 83605; 83735; 83880; 84100; 84134; 84145; 84443; 84484; 85014; 85018; 85025; 85610; 85730; 86850; 86900; 86901; 86920; 86922; 87040; 87070; 87077; 87086; 87184; 87186; 87205; 87493; 87493-59; 87641; 87804; 93005; 93306; 94002; 94003; 94640; 94770; 96361; 96374; 97162-GP; 99285; A9270-GY; C1751; C9113; G8978-CN-GP; G8979-CN-GP; G8980-CN-GP; J1885; J1940; J1953; J2185; J2250; J2370; J2543; J3260; J3370; P9016